=== PATIENT | male | born 1975 | race Caucasian/White ===

== ENCOUNTER 2020-02-07 16:28 | Inpatient (IN) | payer SELFPAY ==
[2020-02-07] MEDS ORDERED: RINGERS SOLUTION,LACTATED 1,000 ML IV ONE (17:24)
[2020-02-07] MEDS ORDERED: LORAZEPAM INJ 2 MG/1 ML VIAL IV ONE ×3 (17:24→20:21)
--- NOTE | 2020-02-07 17:26 | ER Document Report ---
ED Medical Screen (RME) - General Chief Complaint: ETOH Abuse Stated Complaint: ETOH ABUSE Time Seen by Provider: 02/07/20 17:19 Mode of Arrival: Ambulatory Information source: Patient Notes: HPI; 44-year-old male no medical problems history of alcohol abuse presents to the emergency room requesting detox. Patient states he been sober for 10 years started drinking a few months ago unknown how much he drinks daily. Admits to drinking today. Unknown quantity. Denies any suicidal, homicidal ideation. PE: Alert and oriented x3. Moderate distress, shaky in triage, lungs were clear to auscultation without rales, rhonchi, or wheezes. Heart: Tachycardic without murmurs rubs or gallops. I have greeted and performed a rapid initial assessment of this patient. A comprehensive ED assessment and evaluation of the patient, analysis of test results and completion of the medical decision making process will be conducted by additional ED providers. I have specifically instructed the patient or family members with the patient to immediately return to any nursing staff should anything change in the patient's condition or with their chief complaint. TRAVEL OUTSIDE OF THE [place] IN LAST 30 DAYS: No - Related Data Allergies/Adverse Reactions: bupropion [From Wellbutrin] Allergy (Verified 02/07/20 17:16) Physical Exam - Vital signs Vitals: Temp Pulse Resp BP Pulse Ox 98.4 F 115 H 16 139/99 H 96 02/07/20 16:33 02/07/20 16:33 02/07/20 16:33 02/07/20 16:33 02/07/20 16:33 Course - Vital Signs Vital signs: Temp Pulse Resp BP Pulse Ox 98.4 F 115 H 16 139/99 H 96 02/07/20 16:33 02/07/20 16:33 02/07/20 16:33 02/07/20 16:33 02/07/20 16:33
[2020-02-07 17:45] LABS: ABSOLUTE BASOPHILS # (AUTO) 0.1 10^3/uL (0.0-0.2); ABSOLUTE EOSINOPHILS # (AUTO) 0.2 10^3/uL (0.0-0.6); ABSOLUTE LYMPHOCYTES (AUTO) 1.5 10^3/uL (0.5-4.7); ABSOLUTE MONOCYTES (AUTO) 0.4 10^3/uL (0.1-1.4); ABSOLUTE NEUT (AUTO) 2.6 10^3/uL (1.7-8.2); EOSINOPHILS % (AUTO) 4.3 % (0-6); HEMOGLOBIN 18.1 g/dL (13.5-17.0); LYMPHOCYTES % (AUTO) 31.5 % (13-45); MEAN CORPUSCULAR HEMOGLOBIN 34.1 pg (27.0-33.4); MEAN CORPUSCULAR HGB CONC 34.8 g/dL (32.0-36.0); MEAN CORPUSCULAR VOLUME 98 fl (80-97); PLATELET COUNT 151 10^3/uL (150-450); RED CELL DISTRIBUTION WIDTH 14.7 % (11.5-14.0); SEGMENTED NEUTROPHILS % (AUTO) 54.2 % (42-78); TOTAL CELLS COUNTED % (AUTO) 100 %; WHITE BLOOD COUNT 4.8 10^3/uL (4.0-10.5)
[2020-02-07] MEDS ORDERED: NORMAL SALINE 1000 ML 1,000 ML with POTASSIUM CHLORIDE 20 MEQ, MAGNESIUM SULFATE 8 MEQ,... IV PRN ×5 (17:58)
--- NOTE | 2020-02-07 18:01 | ER Document Report ---
ED Substance Abuse / Acc. OD - General Chief Complaint: Alcohol Withdrawl Stated Complaint: ETOH ABUSE Time Seen by Provider: 02/07/20 17:19 Mode of Arrival: Ambulatory Information source: Patient Notes: 44-year-old male presented to ED for complaint of alcohol abuse needing to go to detox. He states he went to the [facility] this morning to get detox and they told him his alcohol was too high that he had blown a 0.4 and higher on the breathalyzer. They told him he needed to get a little less inebriated and noted to be admitted. They state he did have a bed open as long as he was able to get alcohol level down in this calendar day. He states he had been sober for many years and then several months ago he started drinking and he drinks several pints of alcohol a day his last drink was this morning he drank about a pint he is not sure exactly how much. He states he is not having any thoughts of suicidal homicidal he just wants to get him to get detoxed. He states he keeps drinking TRAVEL OUTSIDE OF THE [place] IN LAST 30 DAYS: No - HPI Patient complains to provider of: Alcohol abuse Onset: Other - Several months Onset/Duration: Persistent Quality of pain: Achy Pain Level: 4 Situational problems related to: Other - Alcohol abuse, body aches, wants to get detox Overdose of: Alcohol Time of ingestion: 10:00 Associated Symptoms: Nausea/vomiting, Other - 80 aches Similar symptoms previously: Yes Recently seen / treated by doctor: No - Related Data Allergies/Adverse Reactions: bupropion [From Wellbutrin] Allergy (Verified 02/07/20 17:16) Past Medical History - General Information source: Patient - Social History Smoking Status: Never Smoker Chew tobacco use (# tins/day): Yes Frequency of alcohol use: Heavy Drug Abuse: None Lives with: Family Family History: Reviewed & Not Pertinent Patient has suicidal ideation: No Patient has homicidal ideation: No - Past Medical History Cardiac Medical History: Reports: None Pulmonary Medical History: Reports: None EENT Medical History: Reports: None Neurological Medical History: Reports: None Endocrine Medical History: Reports: None Renal/ Medical History: Reports: None Malignancy Medical History: Reports None GI Medical History: Reports: None Musculoskeletal Medical History: Reports None Skin Medical History: Reports None Psychiatric Medical History: Reports: None Traumatic Medical History: Reports: None Surgical Hx: Negative Past Surgical History: Reports: None Review of Systems - Review of Systems Constitutional: No symptoms reported EENT: No symptoms reported Cardiovascular: No symptoms reported Respiratory: No symptoms reported Gastrointestinal: No symptoms reported Genitourinary: No symptoms reported Male Genitourinary: No symptoms reported Musculoskeletal: Other - Body aches all over Skin: No symptoms reported Hematologic/Lymphatic: No symptoms reported Neurological/Psychological: Other - Alcohol abuse. States he is trying to get into detox and they stated that his alcohol had to be a lot lower. -: Yes All other systems reviewed and negative Physical Exam - Vital signs Vitals: Temp Pulse Resp BP Pulse Ox 98.4 F 115 H 16 139/99 H 96 02/07/20 16:33 02/07/20 16:33 02/07/20 16:33 02/07/20 16:33 02/07/20 16:33 Interpretation: Hypertensive, Tachycardic - General General appearance: Appears well, Alert - HEENT Head: Normocephalic, Atraumatic Eyes: Normal Pupils: PERRL Ears: Normal External canal: Normal Tympanic membrane: Normal Sinus: Normal Nasal: Normal Mouth/Lips: Normal Mucous membranes: Normal Pharynx: Normal Neck: Normal - Respiratory Respiratory status: No respiratory distress Chest status: Nontender Breath sounds: Normal Chest palpation: Normal - Cardiovascular Rhythm: Tachycardia Heart sounds: Normal auscultation Murmur: No - Abdominal Inspection: Normal Distension: No distension Bowel sounds: Normal Tenderness: Nontender Organomegaly: No organomegaly - Back Back: Normal, Nontender Notes: Body aches all over no tenderness to palpation - Extremities General upper extremity: Normal inspection, Nontender, Normal color, Normal ROM, Normal temperature General lower extremity: Normal inspection, Nontender, Normal color, Normal ROM, Normal temperature, Normal weight bearing. No: Sheridan's sign - Neurological Neuro grossly intact: Yes Cognition: Normal Orientation: AAOx4 Clancy Coma Scale Eye Opening: Spontaneous Chantal Coma Scale Verbal: Oriented Chantal Coma Scale Motor: Obeys Commands Chantal Coma Scale Total: 15 Speech: Normal Motor strength normal: LUE, RUE, LLE, RLE Sensory: Normal - Psychological Associated symptoms: Normal affect, Normal mood - Skin Skin Temperature: Warm Skin Moisture: Dry Skin Color: Normal Course - Re-evaluation Re-evalutation: 02/07/20 22:25 Patient has been very hyper active confused and pulling lines of monitors off and having tremors since he came into the emergency room. He has been here m ultiple times with Ativan. Banana bag was started as soon as he was given his first liter of normal saline. When his tremors and hyperactivity were not controlled with the Ativan I did call the hospitalist and admitted him to [facility] with alcohol withdrawal. - Vital Signs Vital signs: Temp Pulse Resp BP Pulse Ox 98.4 F 115 H 20 149/98 H 97 02/07/20 17:16 02/07/20 16:33 02/07/20 21:12 02/07/20 21:12 02/07/20 21:12 - Laboratory Result Diagrams: 02/07/20 17:36 02/07/20 17:36 Laboratory results interpreted by me: 02/07/20 02/07/20 02/07/20 17:36 17:36 17:57 Hgb 18.1 H Hct 52.0 H MCV 98 H MCH 34.1 H RDW 14.7 H AST 248 H ALT 212 H Total Protein 9.2 H Albumin 5.1 H Urine Blood SMALL H Urine Urobilinogen 2.0 H Salicylates < 1.0 L Acetaminophen < 10 L Serum Alcohol 421 H* - EKG Interpretation by [facility] EKG shows normal: Sinus rhythm Rate: Tachycardia [place]/QRS: Left axis deviation Discharge - Discharge Clinical Impression: Alcohol withdrawal delirium, acute, mixed level of activity Disposition: ADMITTED INPATIENT Admitting Provider: Pham (Hospitalist) Unit Admitted: [facility]
[2020-02-07 18:03] LABS: ALBUMIN 5.1 g/dL (3.5-5.0); ALKALINE PHOSPHATASE 66 U/L (38-126); ANION GAP 11 (5-19); ASPARTATE AMINO TRANSFERASE 248 U/L (17-59); BILIRUBIN,DIRECT 0.1 mg/dL (0.0-0.4); BILIRUBIN,TOTAL 0.8 mg/dL (0.2-1.3); BLOOD UREA NITROGEN 10 mg/dL (7-20); CALCIUM 9.6 mg/dL (8.4-10.2); CARBON DIOXIDE 30 mmol/L (22-30); CHLORIDE 102 mmol/L (98-107); GLUCOSE 83 mg/dL (75-110); POTASSIUM 4.4 mmol/L (3.6-5.0); TOTAL PROTEIN 9.2 g/dL (6.3-8.2)
[2020-02-07 18:11] LABS: ACETAMINOPHEN < 10 ug/mL (10-30); SALICYLATE < 1.0 mg/dL (2.0-20.0)
[2020-02-07 18:12] LABS: ALCOHOL 421 mg/dL (NONE DETECTED)
[2020-02-07 18:26] LABS: APPEARANCE,URINE CLEAR; BILIRUBIN,URINE NEGATIVE (NEGATIVE); COLOR,URINE YELLOW; GLUCOSE, URINE NEGATIVE (NEGATIVE); KETONES,URINE NEGATIVE (NEGATIVE); LEUKOCYTE ESTERASE,URINE NEGATIVE (NEGATIVE); NITRITE,URINE NEGATIVE (NEGATIVE); PROTEIN,URINE NEGATIVE (NEGATIVE); URINE SPECIFIC GRAVITY 1.009
[2020-02-07 18:32] LABS: URINE AMPHETAMINES SCREEN NEGATIVE; URINE BARBITURATES SCREEN NEGATIVE; URINE BENZODIAZEPINES SCREEN NEGATIVE; URINE COCAINE SCREEN NEGATIVE; URINE MARIJUANA (THC) SCREEN NEGATIVE; URINE METHADONE SCREEN NEGATIVE; URINE PHENCYCLIDINE SCREEN NEGATIVE
[2020-02-07] MEDS ORDERED: LORAZEPAM INJ 2 MG/1 ML VIAL IV PRN (18:54)
[2020-02-07] MEDS ORDERED: ONDANSETRON HCL INJ/PF 4 MG/2 ML SDV IV ONE (20:20)
[2020-02-07] MEDS ORDERED: ONDANSETRON HCL INJ/PF 4 MG/2 ML SDV ONE (20:21)
[2020-02-07] MEDS ORDERED: PROMETHAZINE HCL INJ 25 MG/1 ML VIAL IV PRN (21:43)
[2020-02-07] MEDS ORDERED: MAGNESIUM HYDROXIDE SUSP 30 ML UDCUP PO PRN (21:43)
[2020-02-07] MEDS ORDERED: GUAIFENESIN SYRP 200 MG/10 ML UDC PO PRN (21:49)
[2020-02-07] MEDS ORDERED: ACETAMINOPHEN 325 MG TABLET PO PRN (21:49)
[2020-02-07] MEDS ORDERED: HYDRALAZINE HCL INJ/PF 20 MG/1 ML SDV IV PRN (21:49)
[2020-02-07] MEDS: FAMOTIDINE 20 MG TABLET PO SCH (23:39)
[2020-02-07] MEDS: DIAZEPAM 5 MG TABLET PO SCH (23:39)
[2020-02-07] MEDS: ATENOLOL 50 MG TABLET PO SCH (23:40)
[2020-02-07] MEDS: HEPARIN SOD (PORCINE) 5,000 UNIT/ML 1 ML VIAL SUBCUT SCH (23:40)
--- NOTE | 2020-02-07 23:42 | EKG REPORT ---
SEVERITY:- BORDERLINE ECG - SINUS TACHYCARDIA BORDERLINE LEFT AXIS DEVIATION BORDERLINE T ABNORMALITIES, LATERAL LEADS : Confirmed by: Zuri Mccormick MD 07-Feb-2020 23:41:34
--- NOTE | 2020-02-07 23:59 | PDOC H&P ---
History of Present Illness Admission Date/PCP: 02/07/20202114 NO LOCAL MD Patient complains of: Alcohol abuse History of Present Illness: PARUL LANDA is a 44 year old male who presented to the emergency room for treatment of longstanding alcohol abuse. Patient was intoxicated and delirious but was able to admit that he had gone to [facility] to seek detoxification. He further admitted a long history of sobriety until several months ago when he began consuming 2 or 3 pints of hard liquor per day, and he consumed a pint of liquor just prior to his arrival at the emergency room. He admits to an associated localized right upper quadrant abdominal moderate aching and tenderness, which he has previously experienced while drinking and was told that it was "liver pain". He was noted to be inconsistent in his answers to many questions. In the emergency room he was found to have a blood alcohol level of 421 and was noted to be somnolent unless aroused, which resulted in his being agitated, tremulous and delirious. He was given a "banana bag" and subsequently was admitted to the hospital for further evaluation and treatment. Past Medical History Past Medical History: The patient is inconsistent in his answers to questions therefore information presented may or may not be completely factual. Cardiac Medical History: Denies: Coronary Artery Disease, Hypertension Pulmonary Medical History: Denies: Asthma, Chronic Obstructive Pulmonary Disease (COPD) EENT Medical History: Denies: Cataracts, Ears - Hearing aids Neurological Medical History: Denies: Migraine, Seizures Endocrine Medical History: Denies: Diabetes Mellitus Type 1, Diabetes Mellitus Type 2 Renal/ Medical History: Denies: Chronic Kidney Disease, Nephrolithiasis Malignancy Medical History: Reports: None GI Medical History: Denies: Cirrhosis, Hepatitis, Peptic Ulcer Disease Musculoskeltal Medical History: Denies: Arthritis, Gout Skin Medical History: Denies: Eczema, Psoriasis Psychiatric Medical History: Reports: Alcohol Dependency Denies: Substance Abuse, Tobacco Dependency Traumatic Medical History: Reports: None Hematology: Denies: Anemia, Bleeding Tendencies Infectious Medical History: Reports: None Past Surgical History Past Surgical History: The patient is inconsistent in his answers to questions therefore information presented may or may not be completely factual. Past Surgical History: Reports: None Social History Information Source: Patient Lives with: Family Smoking Status: Never Smoker Electronic Cigarette use?: No Frequency of Alcohol Use: Heavy - At least 2 to 3 pints of hard liquor per day Hx Recreational Drug Use: No Drugs: None Hx Prescription Drug Abuse: No Past Social History Note: The patient is inconsistent in his answers to questions therefore information presented may or may not be completely factual. - Advance Directive Resuscitation Status: Full Code Surrogate healthcare decision maker:: Pam Landa Family History Family History: denies: CAD, DM, Hypertension, Malignancy Family History: The patient is inconsistent in his answers to questions therefore information presented may or may not be completely factual. Parental Family History Reviewed: Yes Children Family History Reviewed: No Sibling(s) Family History Reviewed.: Yes Medication/Allergy Allergies/Adverse Reactions: bupropion [From Wellbutrin] Allergy (Verified 02/07/20 17:16) Review of Systems Review of Systems: The patient is unreliable in his answers to questions therefore information presented may or may not be completely factual. Constitutional: ABSENT: chills, fever(s) Eyes: ABSENT: visual disturbances, other - Eye pain Ears: ABSENT: hearing changes, other - Ear pain Nose, Mouth, and Throat: ABSENT: headache(s), sore throat Cardiovascular: ABSENT: chest pain, palpitations Respiratory: ABSENT: cough, dyspnea Gastrointestinal: ABSENT: abdominal pain, constipation, diarrhea, nausea, vomiting Genitourinary: ABSENT: dysuria, hematuria Musculoskeletal: ABSENT: back pain, joint swelling Integumentary: ABSENT: pruritus, rash Neurological: PRESENT: tremor(s) - "The shakes". ABSENT: convulsions, focal weakness, memory loss Psychiatric: ABSENT: anxiety, depression Endocrine: ABSENT: cold intolerance, heat intolerance Hematologic/Lymphatic: ABSENT: easy bleeding, easy bruising Allergic/Immunologic: ABSENT: seasonal rhinorrhea Physical Exam Vital Signs: Temp Pulse Resp BP Pulse Ox 98.4 F 115 H 10 L 131/88 H 96 02/07/20 17:16 02/07/20 16:33 02/07/20 19:01 02/07/20 19:00 02/07/20 19:01 Intake & Output 02/05/20 02/06/20 02/07/20 23:59 23:59 23:59 Intake Total 1000 Balance 1000 Weight 82.1 kg General appearance: PRESENT: no acute distress, other - Somnolent/delirious, strong odor of an alcoholic beverage is noted Head exam: PRESENT: atraumatic, normocephalic Eye exam: PRESENT: conjunctiva pink. ABSENT: conjunctival injection, scleral icterus Ear exam: PRESENT: normal external ear exam. ABSENT: bleeding, drainage Mouth exam: PRESENT: dry mucosa, neck supple Neck exam: ABSENT: thyromegaly, tracheal deviation Respiratory exam: PRESENT: clear to auscultation angeline, symmetrical, unlabored Cardiovascular exam: PRESENT: RRR. ABSENT: clicks, gallop, rubs Pulses: PRESENT: normal radial pulses, normal dorsalis pedis pul Vascular exam: PRESENT: normal capillary refill. ABSENT: pallor GI/Abdominal exam: PRESENT: normal bowel sounds, organolmegaly - Mild hepatomegaly, soft, tenderness - Right upper quadrant at costal margin with palpable liver edge moderately tender to light palpation Rectal exam: PRESENT: deferred Extremities exam: ABSENT: joint swelling, pedal edema Musculoskeletal exam: ABSENT: deformity, dislocation Neurological exam: PRESENT: altered - Somnolent, delirious and agitated when a roused, CN II-XII grossly intact, other - Moderately tremulous in all extremities Psychiatric exam: PRESENT: appropriate affect, other - Mild delirium Skin exam: PRESENT: dry, intact, warm. ABSENT: jaundice, rash, urticaria Results Laboratory Results: 02/07/20 17:36 02/07/20 17:36 02/07/20 02/07/20 02/07/20 17:36 17:36 17:57 WBC 4.8 RBC 5.30 Hgb 18.1 H Hct 52.0 H MCV 98 H MCH 34.1 H MCHC 34.8 RDW 14.7 H Plt Count 151 Seg Neutrophils % 54.2 Sodium 143.4 Potassium 4.4 Chloride 102 Carbon Dioxide 30 Anion Gap 11 BUN 10 Creatinine 1.06 Est GFR ( Amer) > 60 Glucose 83 Calcium 9.6 Total Bilirubin 0.8 AST 248 H Alkaline Phosphatase 66 Total Protein 9.2 H Albumin 5.1 H Urine Color YELLOW Urine Appearance CLEAR Urine pH 8.0 Ur Specific [place] 1.009 Urine Protein NEGATIVE Urine Glucose (UA) NEGATIVE Urine Ketones NEGATIVE Urine Blood SMALL H Urine Nitrite NEGATIVE Ur Leukocyte Esterase NEGATIVE Urine WBC (Auto) 1 Urine RBC (Auto) 2 Assessment and Plan - Diagnosis (1) Acute alcohol intoxication Qualifiers: Complication of substance-induced condition: with delirium Qualified Code(s): F10.921 - Alcohol use, unspecified with intoxication delirium Is this a current diagnosis for this admission?: Yes (2) Alcohol withdrawal delirium, acute, mixed level of activity Is this a current diagnosis for this admission?: Yes (3) Elevated liver enzymes Is this a current diagnosis for this admission?: Yes (4) Tachycardia Is this a current diagnosis for this admission?: Yes - Plan Summary Summary: Patient will be admitted on observation bed assignment status to [facility] he will receive routine supportive and symptomatic cares. He will be treated with Valium 10 mg p.o. every 4 hours. He will receive Valium 10 mg IV every hour as needed for severe withdrawal symptoms. He will receive a "banana bag" once da sofie. CBCs, magnesium levels, metabolic profiles and liver function studies will be obtained as appropriate. Patient will be on a regular diet as tolerated. He will receive IV fluids using lactated Ringer's at 167 mL/h x 12 hours. He will be on a monitoring tech initially. He will be treated with atenolol 50 mg p.o. every 12 hours to control hypertension and tachycardia. building services technician will be consulted for assistance with disposition. - Time Time Spent with patient: Less than 15 minutes Medications reviewed and adjusted accordingly: No - No home meds Anticipated discharge: Other - Alcohol rehabilitation center - Inpatient Certification Based on my medical assessment, after consideration of the patient's comorbidities, presenting symptoms, or acuity I expect that the services needed warrant INPATIENT care.: Yes I certify that my determination is in accordance with my understanding of Medicare's requirements for reasonable and necessary INPATIENT services [42 CFR 412.3e].: Yes Medical Necessity: Need Close Monitoring Due to Risk of Patient Decompensation, Risk of Complication if Not Cared For in Hospital
[2020-02-08] MEDS: DIAZEPAM INJ 10 MG/2 ML DISP.SYRIN IV PRN ×6 (00:11→08:09)
[2020-02-08] MEDS: DEXTROSE 5%-LACTATED RINGERS 1,000 ML IV PRN ×2 (00:12→23:55)
[2020-02-08] MEDS: DIAZEPAM 5 MG TABLET PO SCH ×5 (02:05→18:57)
[2020-02-08] MEDS: HEPARIN SOD (PORCINE) 5,000 UNIT/ML 1 ML VIAL SUBCUT SCH ×3 (05:40→22:07)
[2020-02-08 06:38] LABS: HEMATOCRIT 45.9 % (37.9-51.0); MEAN CORPUSCULAR HEMOGLOBIN 34.2 pg (27.0-33.4); MEAN CORPUSCULAR HGB CONC 34.7 g/dL (32.0-36.0); MEAN CORPUSCULAR VOLUME 99 fl (80-97); PLATELET COUNT 110 10^3/uL (150-450); RED BLOOD COUNT 4.65 10^6/uL (4.35-5.55); RED CELL DISTRIBUTION WIDTH 14.5 % (11.5-14.0); WHITE BLOOD COUNT 6.9 10^3/uL (4.0-10.5)
[2020-02-08 06:41] LABS: HEMOGLOBIN 15.9 g/dL (13.5-17.0)
[2020-02-08 06:58] LABS: ALBUMIN 4.3 g/dL (3.5-5.0); ALKALINE PHOSPHATASE 54 U/L (38-126); ANION GAP 12 (5-19); ASPARTATE AMINO TRANSFERASE 214 U/L (17-59); BILIRUBIN,DIRECT 0.1 mg/dL (0.0-0.4); BILIRUBIN,TOTAL 0.8 mg/dL (0.2-1.3); BLOOD UREA NITROGEN 11 mg/dL (7-20); CARBON DIOXIDE 25 mmol/L (22-30); CHLORIDE 104 mmol/L (98-107); GLUCOSE 84 mg/dL (75-110); POTASSIUM 4.2 mmol/L (3.6-5.0); TOTAL PROTEIN 7.6 g/dL (6.3-8.2)
[2020-02-08] MEDS ORDERED: NORMAL SALINE 1000 ML 1,000 ML with POTASSIUM CHLORIDE 20 MEQ, MAGNESIUM SULFATE 8 MEQ,... IV SCH ×20 (08:00→18:00)
[2020-02-08] MEDS ORDERED: LORAZEPAM INJ 2 MG/1 ML VIAL ONE (09:57)
[2020-02-08] MEDS: DOCUSATE SODIUM 100 MG CAPSULE PO SCH ×2 (10:01→18:56)
[2020-02-08] MEDS: FAMOTIDINE 20 MG TABLET PO SCH ×2 (10:02→22:05)
[2020-02-08] MEDS: ATENOLOL 50 MG TABLET PO SCH ×2 (10:07→22:06)
[2020-02-08] MEDS: LORAZEPAM INJ 2 MG/1 ML VIAL IV PRN ×3 (12:07→21:02)
[2020-02-08] MEDS: NICOTINE 7 MG/24 HR PATCH.TD24 TD SCH (13:15)
--- NOTE | 2020-02-08 17:12 | PDOC PROGRESS REPORT ---
Subjective Progress Note for:: 02/08/20 Subjective:: Patient feels very anxious today. Having tremors. Denies history of withdrawal seizures. States that he feels like he is undergoing withdrawal. Reason For Visit: ACUTE ALCOHOL INTOXICATION,ALCOHOL Physical Exam Vital Signs: Temp Pulse Resp BP Pulse Ox 97.7 F 70 16 135/87 H 99 02/08/20 08:08 02/08/20 14:00 02/08/20 08:08 02/08/20 08:08 02/08/20 08:08 Intake & Output 02/07/20 02/08/20 02/09/20 06:59 06:59 06:59 Intake Total 2463 747 Output Total 200 140 Balance 2263 607 Weight 82.1 kg General appearance: PRESENT: no acute distress, cooperative Neck exam: ABSENT: JVD Respiratory exam: PRESENT: clear to auscultation angeline, unlabored. ABSENT: tac hypnea, wheezes Cardiovascular exam: PRESENT: +S1, +S2, tachycardia. ABSENT: irregular rhythm GI/Abdominal exam: PRESENT: soft. ABSENT: rebound, rigid, tenderness Neurological exam: PRESENT: alert, awake, oriented to person, oriented to place, oriented to time, other - Tremulous in all extremities. Appears somewhat confu sed but fully oriented and answers questions appropriately. Psychiatric exam: PRESENT: anxious. ABSENT: agitated Skin exam: PRESENT: other - Flushed skin Results Laboratory Results: 02/08/20 06:09 02/08/20 06:09 02/07/20 02/07/20 02/07/20 17:36 17:36 17:57 WBC 4.8 RBC 5.30 Hgb 18.1 H Hct 52.0 H MCV 98 H MCH 34.1 H MCHC 34.8 RDW 14.7 H Plt Count 151 Seg Neutrophils % 54.2 Sodium 143.4 Potassium 4.4 Chloride 102 Carbon Dioxide 30 Anion Gap 11 BUN 10 Creatinine 1.06 Est GFR ( Amer) > 60 Glucose 83 Calcium 9.6 Magnesium Total Bilirubin 0.8 AST 248 H Alkaline Phosphatase 66 Total Protein 9.2 H Albumin 5.1 H Urine Color YELLOW Urine Appearance CLEAR Urine pH 8.0 Ur Specific [place] 1.009 Urine Protein NEGATIVE Urine Glucose (UA) NEGATIVE Urine Ketones NEGATIVE Urine Blood SMALL H Urine Nitrite NEGATIVE Ur Leukocyte Esterase NEGATIVE Urine WBC (Auto) 1 Urine RBC (Auto) 2 02/08/20 02/08/20 06:09 06:09 WBC 6.9 RBC 4.65 Hgb 15.9 D Hct 45.9 MCV 99 H MCH 34.2 H MCHC 34.7 RDW 14.5 H Plt Count 110 L Seg Neutrophils % Sodium 140.5 Potassium 4.2 Chloride 104 Carbon Dioxide 25 Anion Gap 12 BUN 11 Creatinine 0.95 Est GFR ( Amer) > 60 Glucose 84 Calcium 9.0 Magnesium 2.1 Total Bilirubin 0.8 AST 214 H Alkaline Phosphatase 54 Total Protein 7.6 Albumin 4.3 Urine Color Urine Appearance Urine pH Ur Specific [place] Urine Protein Urine Glucose (UA) Urine Ketones Urine Blood Urine Nitrite Ur Leukocyte Esterase Urine WBC (Auto) Urine RBC (Auto) Assessment and Plan - Diagnosis (1) Alcohol withdrawal delirium, acute, mixed level of activity Is this a current diagnosis for this admission?: Yes Plan: Today, patient is in significant alcohol withdrawal requiring frequent IV Ativan. I have placed patient on standing dose of Valium 5 mg TID and as needed IV lorazepam based of CIWA scores. Last CIWA score was 17. Will monitor patie nt very closely in the IMCU and will escalate level of care if needed. (2) Alcoholic hepatitis Qualifiers: Ascites presence: without ascites Qualified Code(s): K70.10 - Alcoholic hepatitis without ascites Is this a current diagnosis for this admission?: Yes Plan: Monitor on liver enzymes. Patient has been advised to abstain from alcohol. (3) Acute alcohol intoxication Qualifiers: Complication of substance-induced condition: with unspecified complication Qualified Code(s): F10.929 - Alcohol use, unspecified with intoxication, unspecified Is this a current diagnosis for this admission?: Yes Plan: Presented with acute alcohol intoxication with serum alcohol of 421 but now has become sober and actually withdrawal. - Time Time Spent with patient: 15-24 minutes
[2020-02-09] MEDS: LORAZEPAM INJ 2 MG/1 ML VIAL IV PRN ×4 (00:05→21:32)
[2020-02-09 06:48] LABS: ALBUMIN 3.9 g/dL (3.5-5.0); ALKALINE PHOSPHATASE 51 U/L (38-126); ANION GAP 7 (5-19); ASPARTATE AMINO TRANSFERASE 140 U/L (17-59); BILIRUBIN,DIRECT 0.1 mg/dL (0.0-0.4); BILIRUBIN,TOTAL 1.4 mg/dL (0.2-1.3); BLOOD UREA NITROGEN 9 mg/dL (7-20); CALCIUM 9.3 mg/dL (8.4-10.2); CARBON DIOXIDE 26 mmol/L (22-30); CHLORIDE 103 mmol/L (98-107); GLUCOSE 103 mg/dL (75-110); POTASSIUM 3.8 mmol/L (3.6-5.0); TOTAL PROTEIN 7.2 g/dL (6.3-8.2)
[2020-02-09] MEDS: DEXTROSE 5%-LACTATED RINGERS 1,000 ML IV PRN (07:20)
[2020-02-09] MEDS: HEPARIN SOD (PORCINE) 5,000 UNIT/ML 1 ML VIAL SUBCUT SCH ×3 (07:33→21:30)
[2020-02-09] MEDS: DOCUSATE SODIUM 100 MG CAPSULE PO SCH (09:32)
[2020-02-09] MEDS: ATENOLOL 50 MG TABLET PO SCH ×2 (09:34→21:31)
[2020-02-09] MEDS: NICOTINE 7 MG/24 HR PATCH.TD24 TD SCH (09:34)
[2020-02-09] MEDS: DIAZEPAM 5 MG TABLET PO SCH ×3 (09:34→18:01)
[2020-02-09] MEDS: FAMOTIDINE 20 MG TABLET PO SCH ×2 (09:34→21:32)
[2020-02-09] MEDS ORDERED: LORAZEPAM 1 MG TABLET PO PRN (11:49)
[2020-02-09] MEDS ORDERED: FOLIC ACID 1 MG TABLET PO ONE (11:53)
[2020-02-09] MEDS ORDERED: THIAMINE HCL 100 MG TABLET PO ONE (11:53)
--- NOTE | 2020-02-09 12:00 | PDOC PROGRESS REPORT ---
Subjective Progress Note for:: 02/09/20 Subjective:: Patient is doing better today in terms of his CIWA scores. He is fully oriented and denies any hallucinations. Does seem somewhat anxious when he wakes up. Denies any pain or shortness of breath. Reason For Visit: ACUTE ALCOHOL INTOXICATION,ALCOHOL Physical Exam Vital Signs: Temp Pulse Resp BP Pulse Ox 97.7 F 53 L 16 138/87 H 99 02/08/20 16:18 02/09/20 06:43 02/08/20 16:18 02/08/20 16:18 02/08/20 16:18 Intake & Output 02/08/20 02/09/20 02/10/20 06:59 06:59 06:59 Intake Total 3463 1947 1023 Output Total 200 1670 Balance 3263 277 1023 Weight 82.1 kg 78.5 kg General appearance: PRESENT: no acute distress, cooperative Neck exam: ABSENT: JVD Respiratory exam: PRESENT: clear to auscultation angeline, symmetrical, unlabored. ABSENT: tachypnea, wheezes Cardiovascular exam: PRESENT: RRR, +S1, +S2. ABSENT: tachycardia GI/Abdominal exam: PRESENT: soft. ABSENT: rebound, rigid, tenderness Neurological exam: PRESENT: alert, awake, oriented to person, oriented to place, oriented to time, oriented to situation, other - Tremor mostly in the arms but improved Psychiatric exam: PRESENT: anxious. ABSENT: agitated Results Laboratory Results: 02/08/20 06:09 02/09/20 06:06 02/09/20 06:06 Sodium 135.5 L Potassium 3.8 Chloride 103 Carbon Dioxide 26 Anion Gap 7 BUN 9 Creatinine 0.88 Est GFR ( Amer) > 60 Glucose 103 Calcium 9.3 Magnesium 1.9 Total Bilirubin 1.4 H AST 140 H Alkaline Phosphatase 51 Total Protein 7.2 Albumin 3.9 Assessment and Plan - Diagnosis (1) Alcohol withdrawal delirium, acute, mixed level of activity Is this a current diagnosis for this admission?: Yes Plan: CIWA scores show significant improvement today. CIWA scores of 9 twice this morning. We will continue to monitor closely. Will maintain on Valium standing regimen today and hopefully we can start to wean tomorrow. Ativan as needed for elevated CIWA scores. IV and n.p.o. orders according to scores. If patient ciwa scores remain low today, then can send patient to [facility] for further detox tomorrow. Discussed with discharge planning to help coordinate. (2) Alcoholic hepatitis Qualifiers: Ascites presence: without ascites Qualified Code(s): K70.10 - Alcoholic hepatitis without ascites Is this a current diagnosis for this admission?: Yes Plan: Transaminases trending down. Patient has been advised to abstain from alcohol. (3) Acute alcohol intoxication Qualifiers: Complication of substance-induced condition: with unspecified complication Qualified Code(s): F10.929 - Alcohol use, unspecified with intoxication, unspecified Is this a current diagnosis for this admission?: Yes Plan: Initially intoxicated upon admission but now in rapid withdrawal. Thiamine and folic acid supplementation. Will check B12 and folic acid level in light of macrocytosis noted on CBC. - Time Time Spent with patient: Less than 15 minutes
[2020-02-10] MEDS: LORAZEPAM INJ 2 MG/1 ML VIAL IV PRN ×2 (01:18→04:21)
[2020-02-10] MEDS: HEPARIN SOD (PORCINE) 5,000 UNIT/ML 1 ML VIAL SUBCUT SCH ×2 (06:03→13:40)
[2020-02-10 07:17] LABS: ALBUMIN 4.1 g/dL (3.5-5.0); ALKALINE PHOSPHATASE 56 U/L (38-126); ANION GAP 8 (5-19); ASPARTATE AMINO TRANSFERASE 138 U/L (17-59); BILIRUBIN,DIRECT 0.1 mg/dL (0.0-0.4); BILIRUBIN,TOTAL 0.8 mg/dL (0.2-1.3); BLOOD UREA NITROGEN 14 mg/dL (7-20); CALCIUM 9.9 mg/dL (8.4-10.2); CARBON DIOXIDE 27 mmol/L (22-30); CHLORIDE 102 mmol/L (98-107); GLUCOSE 96 mg/dL (75-110); POTASSIUM 4.1 mmol/L (3.6-5.0); TOTAL PROTEIN 7.8 g/dL (6.3-8.2)
[2020-02-10] MEDS: ATENOLOL 50 MG TABLET PO SCH (09:58)
[2020-02-10] MEDS: FAMOTIDINE 20 MG TABLET PO SCH (09:58)
[2020-02-10] MEDS: DIAZEPAM 5 MG TABLET PO SCH ×3 (09:58→17:35)
[2020-02-10] MEDS: NICOTINE 7 MG/24 HR PATCH.TD24 TD SCH (09:59)
[2020-02-10] MEDS ORDERED: FOLIC ACID 1 MG TABLET PO SCH (10:00)
[2020-02-10] MEDS ORDERED: THIAMINE HCL 100 MG TABLET PO SCH (10:00)
--- NOTE | 2020-02-10 15:18 | PDOC DISCHARGE SUMMARY ---
Impression - Admit/DC Date/PCP Admission Date/Primary Care Provider: 02/08/20 12:49 Discharge Date: 02/10/20 - Discharge Diagnosis (1) Alcohol withdrawal delirium, acute, mixed level of activity Is this a current diagnosis for this admission?: Yes (2) Alcoholic hepatitis Is this a current diagnosis for this admission?: Yes (3) Acute alcohol intoxication Is this a current diagnosis for this admission?: Yes - Additional Information Resuscitation Status: Full Code Discharge Diet: Regular Discharge Activity: Activity As Tolerated Referrals: BAKARI CLARKE [NO LOCAL MD] - Follow up as needed Home Medications: Trazodone HCl [Desyrel 50 mg Tablet] 150 mg PO QHS 02/08/20 History of Present Illiness History of Present Illness: According to admitting provider: PARUL ROBISON is a 44 year old male who presented to the emergency room for treatment of longstanding alcohol abuse. Patient was intoxicated and delirious but was able to admit that he had gone to [facility] to seek detoxification. He further admitted a long history of sobriety until several months ago when he began consuming 2 or 3 pints of hard liquor per day, and he consumed a pint of liquor just prior to his arrival at the emergency room. He admits to an associated localized right upper quadrant abdominal moderate aching and tenderness, which he has previously experienced while drinking and was told that it was "liver pain". He was noted to be inconsistent in his answers to many questions. In the emergency room he was found to have a blood alcohol level of 421 and was noted to be somnolent unless aroused, which resulted in his being agitated, tremulous and delirious. He was given a "banana bag" and subsequently was admitted to the hospital for further evaluation and treatment. Hospital Course Hospital Course: Patient was initially admitted for alcohol intoxication with blood alcohol level over 400. Also noted was evidence of alcoholic hepatitis on lab work. Patient was treated with IV fluids. By the next day patient became sober and started having withdrawal. Initially CIWA scores were extremely high over 15. He was placed on standing Valium and giving as needed Ativan doses based of CIWA scores. He was also placed on thiamine and folic acid. Vitamin B12 levels were checked which were normal and so were folic acid levels. His transaminitis improved and his hyperbilirubinemia resolved. His CIWA scores also improved and today his CIWA scores were all below 10. At this point patient is being discharged to help with detox center in [place] where patient already has a bed. Physical Exam Vital Signs: Temp Pulse Resp BP Pulse Ox 97.9 F 85 16 135/87 H 98 02/10/20 11:05 02/10/20 11:05 02/10/20 11:05 02/10/20 11:05 02/10/20 11:05 Intake & Output 02/09/20 02/10/20 02/11/20 06:59 06:59 06:59 Intake Total 1947 2869 Output Total 1670 1430 Balance 277 1439 Weight 78.5 kg 86.3 kg General appearance: PRESENT: no acute distress, cooperative Respiratory exam: PRESENT: unlabored Cardiovascular exam: ABSENT: tachycardia Neurological exam: PRESENT: alert, awake, oriented to person, oriented to place, oriented to time, oriented to situation Skin exam: PRESENT: other - flushed Results Laboratory Results: WBC 6.9 10^3/uL (4.0-10.5) 02/08/20 06:09 RBC 4.65 10^6/uL (4.35-5.55) 02/08/20 06:09 Hgb 15.9 g/dL (13.5-17.0) D 02/08/20 06:09 Hct 45.9 % (37.9-51.0) 02/08/20 06:09 MCV 99 fl (80-97) H 02/08/20 06:09 MCH 34.2 pg (27.0-33.4) H 02/08/20 06:09 MCHC 34.7 g/dL (32.0-36.0) 02/08/20 06:09 RDW 14.5 % (11.5-14.0) H 02/08/20 06:09 Plt Count 110 10^3/uL (150-450) L 02/08/20 06:09 Lymph % (Auto) 31.5 % (13-45) 02/07/20 17:36 [place] % (Auto) 9.0 % (3-13) 02/07/20 17:36 Eos % (Auto) 4.3 % (0-6) 02/07/20 17:36 Baso % (Auto) 1.0 % (0-2) 02/07/20 17:36 Absolute Neuts (auto) 2.6 10^3/uL (1.7-8.2) 02/07/20 17:36 Absolute Lymphs (auto) 1.5 10^3/uL (0.5-4.7) 02/07/20 17:36 Absolute Monos (auto) 0.4 10^3/uL (0.1-1.4) 02/07/20 17:36 Absolute Eos (auto) 0.2 10^3/uL (0.0-0.6) 02/07/20 17:36 Absolute Basos (auto) 0.1 10^3/uL (0.0-0.2) 02/07/20 17:36 Seg Neutrophils % 54.2 % (42-78) 02/07/20 17:36 Sodium 137.4 mmol/L (137-145) 02/10/20 05:58 Potassium 4.1 mmol/L (3.6-5.0) 02/10/20 05:58 Chloride 102 mmol/L (98-107) 02/10/20 05:58 Carbon Dioxide 27 mmol/L (22-30) 02/10/20 05:58 Anion Gap 8 (5-19) 02/10/20 05:58 BUN 14 mg/dL (7-20) 02/10/20 05:58 Creatinine 1.06 mg/dL (0.52-1.25) 02/10/20 05:58 Est GFR ( Amer) > 60 (>60) 02/10/20 05:58 Est GFR (MDRD) Non-Af > 60 (>60) 02/10/20 05:58 Glucose 96 mg/dL (75-110) 02/10/20 05:58 Calcium 9.9 mg/dL (8.4-10.2) 02/10/20 05:58 Magnesium 1.9 mg/dL (1.6-2.3) 02/10/20 05:58 Total Bilirubin 0.8 mg/dL (0.2-1.3) 02/10/20 05:58 Direct Bilirubin 0.1 mg/dL (0.0-0.4) 02/10/20 05:58 Neonat Total Bilirubin Not Reportable 02/10/20 05:58 Neonat Direct Bilirubin Not Reportable 02/10/20 05:58 Neonat Indirect Bili Not Reportable 02/10/20 05:58 AST 138 U/L (17-59) H 02/10/20 05:58 ALT 183 U/L (<50) H 02/10/20 05:58 Alkaline Phosphatase 56 U/L (38-126) 02/10/20 05:58 Total Protein 7.8 g/dL (6.3-8.2) 02/10/20 05:58 Albumin 4.1 g/dL (3.5-5.0) 02/10/20 05:58 Vitamin B12 891.0 pg/mL (239-931) 02/10/20 05:58 Folate 15.70 ng/mL (>2.76) 02/10/20 05:58 Urine Color YELLOW 02/07/20 17:57 Urine Appearance CLEAR 02/07/20 17:57 Urine pH 8.0 (5.0-9.0) 02/07/20 17:57 Ur Specific [place] 1.009 02/07/20 17:57 Urine Protein NEGATIVE mg/dL (NEGATIVE) 02/07/20 17:57 Urine Glucose (UA) NEGATIVE mg/dL (NEGATIVE) 02/07/20 17:57 Urine Ketones NEGATIVE mg/dL (NEGATIVE) 02/07/20 17:57 Urine Blood SMALL (NEGATIVE) H 02/07/20 17:57 Urine Nitrite NEGATIVE (NEGATIVE) 02/07/20 17:57 Urine Bilirubin NEGATIVE (NEGATIVE) 02/07/20 17:57 Urine Urobilinogen 2.0 mg/dL (<2.0) H 02/07/20 17:57 Ur Leukocyte Esterase NEGATIVE (NEGATIVE) 02/07/20 17:57 Urine WBC (Auto) 1 /HPF 02/07/20 17:57 Urine RBC (Auto) 2 /HPF 02/07/20 17:57 Urine Ascorbic Acid NEGATIVE (NEGATIVE) 02/07/20 17:57 Salicylates < 1.0 mg/dL (2.0-20.0) L 02/07/20 17:36 Urine Opiates Screen NEGATIVE 02/07/20 17:57 Urine Methadone Screen NEGATIVE 02/07/20 17:57 Acetaminophen < 10 ug/mL (10-30) L 02/07/20 17:36 Ur Barbiturates Screen NEGATIVE 02/07/20 17:57 Ur Phencyclidine Scrn NEGATIVE 02/07/20 17:57 Ur Amphetamines Screen NEGATIVE 02/07/20 17:57 U Benzodiazepines Scrn NEGATIVE 02/07/20 17:57 Urine Cocaine Screen NEGATIVE 02/07/20 17:57 U Marijuana (THC) Screen NEGATIVE 02/07/20 17:57 Serum Alcohol 131 mg/dL (NONE DETECTED) 02/08/20 06:09 Plan Time Spent: Less than 30 Minutes Stroke Is this a Stroke Patient?: No Acute Heart Failure - Is this a Heart Failure Patient?: No
[2020-02-10 15:36] VITALS: BP 118/66
== END 2020-02-10 18:06 | DRG 897 ==
LOC: ER 16:28 → EH 21:27 → INTOOBSV 21:27 → 3W 23:05 → OBSVTOIN 02-08 12:49
PROVIDERS: ADMIT Emergency Medicine; ATTEND Internal Medicine
PROC: HZ2ZZZZ Detoxification Services for Substance Abuse Treatment (ICD-10-PCS; principal; 2020-02-07)
DX: F10.221 Alcohol dependence with intoxication delirium (principal); K70.10 Alcoholic hepatitis without ascites; Y90.8 Blood alcohol level of 240 mg/100 ml or more; Z82.49 Family history of ischemic heart disease and other diseases of the circulatory system; Z88.8 Allergy status to other drugs, medicaments and biological substances
CPT/HCPCS: 36415; 80048; 80053; 80076; 80307; 81001; 82607; 82746; 83735; 85025; 85027; 93005; 93010; 96361; 96374; 96375; 96376; 99285; G0378; J2060; J2405; J2550; J3360; J3411; J3475; J3480; J3490; J7030; J7120; J7121

== ENCOUNTER 2020-05-28 21:56 | Inpatient (IN) | payer SELFPAY ==
[2020-05-28 22:42] LABS: ABSOLUTE EOSINOPHILS # (AUTO) 0.1 10^3/uL (0.0-0.6); ABSOLUTE LYMPHOCYTES (AUTO) 1.4 10^3/uL (0.5-4.7); ABSOLUTE MONOCYTES (AUTO) 0.9 10^3/uL (0.1-1.4); ABSOLUTE NEUT (AUTO) 7.8 10^3/uL (1.7-8.2); BASOPHILS % (AUTO) 0.2 % (0-2); EOSINOPHILS % (AUTO) 0.9 % (0-6); HEMATOCRIT 43.1 % (37.9-51.0); LYMPHOCYTES % (AUTO) 13.3 % (13-45); MEAN CORPUSCULAR HEMOGLOBIN 33.3 pg (27.0-33.4); MEAN CORPUSCULAR HGB CONC 34.7 g/dL (32.0-36.0); MEAN CORPUSCULAR VOLUME 96 fl (80-97); MONOCYTES % (AUTO) 9.2 % (3-13); PLATELET COUNT 125 10^3/uL (150-450); RED BLOOD COUNT 4.48 10^6/uL (4.35-5.55); RED CELL DISTRIBUTION WIDTH 13.9 % (11.5-14.0); SEGMENTED NEUTROPHILS % (AUTO) 76.4 % (42-78); TOTAL CELLS COUNTED % (AUTO) 100 %; WHITE BLOOD COUNT 10.2 10^3/uL (4.0-10.5)
[2020-05-28 23:04] LABS: ALBUMIN 4.3 g/dL (3.5-5.0); ALCOHOL < 10 mg/dL (NONE DETECTED); ALKALINE PHOSPHATASE 56 U/L (38-126); ANION GAP 9 (5-19); ASPARTATE AMINO TRANSFERASE 88 U/L (17-59); BILIRUBIN,DIRECT 0.3 mg/dL (0.0-0.4); BILIRUBIN,TOTAL 0.8 mg/dL (0.2-1.3); BLOOD UREA NITROGEN 16 mg/dL (7-20); CALCIUM 9.2 mg/dL (8.4-10.2); CARBON DIOXIDE 28 mmol/L (22-30); CHLORIDE 98 mmol/L (98-107); GLUCOSE 122 mg/dL (75-110); TOTAL PROTEIN 7.5 g/dL (6.3-8.2)
[2020-05-28] MEDS ORDERED: THIAMINE HCL 100 MG, FOLIC ACID 1 MG in NORMAL SALINE 250 ML IV ONE (23:21)
[2020-05-28] MEDS ORDERED: DIAZEPAM INJ 10 MG/2 ML DISP.SYRIN IV ONE (23:21)
--- NOTE | 2020-05-28 23:24 | ER Document Report ---
ED General - General Chief Complaint: Alcohol Withdrawl Stated Complaint: WITHDRAWLS Time Seen by Provider: 05/28/20 22:57 Mode of Arrival: Stretcher Information source: Emergency Med Personnel Cannot obtain history due to: Altered mental status Notes: Patient is a 45 y/o male brought in by EMS from the [facility] for alcohol withdrawal. Per EMS, patient was at the [facility] for about 2 days for alcohol detox. He became confused and was reaching for objects that weren't there. Upon arrival, patient is only oriented to person and year but not to place or current situation. [place]. Patient is actively hallucinating as he continues to reach for things that are not there. TRAVEL OUTSIDE OF THE [place] IN LAST 30 DAYS: No - Related Data Allergies/Adverse Reactions: bupropion [From Wellbutrin] Allergy (Verified 05/28/20 22:16) Past Medical History - General Cannot obtain history due to: Altered mental status - Social History Smoking Status: Unknown if Ever Smoked Chew tobacco use (# tins/day): No Frequency of alcohol use: Heavy Drug Abuse: None Family History: denies: CAD, DM, Hypertension, Malignancy Patient has homicidal ideation: No - Past Medical History Cardiac Medical History: Denies: Hx Coronary Artery Disease, Hx Hypertension Pulmonary Medical History: Denies: Hx Asthma, Hx COPD Neurological Medical History: Denies: Hx Migraine, Hx Seizures Endocrine Medical History: Denies: Hx Diabetes Mellitus Type 1, Hx Diabetes Mellitus Type 2 GI Medical History: Denies: Hx Cirrhosis, Hx Hepatitis Musculoskeletal Medical History: Denies Hx Arthritis, Denies Hx Gout Skin Medical History: Denies Hx Eczema, Denies Hx Psoriasis Psychiatric Medical History: Reports: Hx Depression Infectious Medical History: Denies: Hx Hepatitis Review of Systems - Review of Systems -: Yes ROS unobtainable due to patient's medical condition Physical Exam - Vital signs Vitals: Temp 97.6 F 05/28/20 21:57 - Notes Notes: PHYSICAL EXAMINATION: GENERAL: Disheveled and ill-appearing. HEAD: Atraumatic, normocephalic. EYES: Pupils equal round and reactive to light, extraocular movements intact, sclera anicteric, conjunctiva are normal. ENT: nares patent, oropharynx clear without exudates. Moist mucous membranes. NECK: Normal range of motion, supple without lymphadenopathy LUNGS: Breath sounds clear to auscultation bilaterally and equal. No wheezes rales or rhonchi. HEART: Tachycardia with a regular rhythm. No murmurs noted. ABDOMEN: Soft, nontender, normoactive bowel sounds. No guarding, no rebound. No masses appreciated. EXTREMITIES: Normal range of motion, no pitting or edema. No cyanosis. NEUROLOGICAL: Alert and oriented x 2 (name and year). Not oriented to place or current situation. No tremors noted. PSYCH: Stuttered speech. Actively hallucinating as he reaches for objects that are not there. SKIN: Warm, Dry, with isa complexion. Course - Re-evaluation Re-evalutation: Patient brought in by EMS from the [facility] for alcohol withdrawal. Patient is not oriented to place or situation and actively hallucinating with stuttered speech. Patient is tachycardic at 119. Serum alcohol <10, sodium 134.6, AST 88 and ALT 80. Diazepam 10mg IV ordered immediately along with thiamine and folic acid. After diazepam give, tachycardia improved to 90s and no active signs of withdrawal. Patient will be admitted for alcohol withdrawal and altered mental status. Dr. Nath called and accepted patient for full admission to [facility]. Laboratory 05/28/20 05/28/20 22:09 22:09 WBC 10.2 RBC 4.48 Hgb 15.0 Hct 43.1 MCV 96 MCH 33.3 MCHC 34.7 RDW 13.9 Plt Count 125 L Lymph % (Auto) 13.3 [place] % (Auto) 9.2 Eos % (Auto) 0.9 Baso % (Auto) 0.2 Absolute Neuts (auto) 7.8 Absolute Lymphs (auto) 1.4 Absolute Monos (auto) 0.9 Absolute Eos (auto) 0.1 Absolute Basos (auto) 0.0 Seg Neutrophils % 76.4 Sodium 134.6 L Potassium 4.0 Chloride 98 Carbon Dioxide 28 Anion Gap 9 BUN 16 Creatinine 1.12 Est GFR ( Amer) > 60 Est GFR (MDRD) Non-Af > 60 Glucose 122 H Calcium 9.2 Magnesium 1.9 Total Bilirubin 0.8 Direct Bilirubin 0.3 Neonat Total Bilirubin Not Reportable Neonat Direct Bilirubin Not Reportable Neonat Indirect Bili Not Reportable AST 88 H ALT 80 H Alkaline Phosphatase 56 Total Protein 7.5 Albumin 4.3 Serum Alcohol < 10 - Vital Signs Vital signs: Temp Pulse Resp BP Pulse Ox 97.6 F 14 111/74 93 05/28/20 21:57 05/29/20 01:31 05/29/20 01:31 05/29/20 01:31 - Laboratory Result Diagrams: 05/28/20 22:09 05/28/20 22:09 Laboratory results interpreted by me: 05/28/20 05/28/20 22:09 22:09 Plt Count 125 L Sodium 134.6 L Glucose 122 H AST 88 H ALT 80 H - EKG Interpretation by Me Additional EKG results interpreted by me: Sinus tachycardia with a rate of 120. QTc 430. Normal [place]. No T wave inversions or ST segment changes in consecutive leads. Discharge - Discharge Clinical Impression: Alcohol withdrawal delirium Altered mental status Qualifiers: Altered mental status type: delirium Qualified Code(s): R41.0 - Disorientation, unspecified Condition: Stable Disposition: ADMITTED INPATIENT Admitting Provider: Pham (Hospitalist) Unit Admitted: [facility]
[2020-05-28] MEDS ORDERED: FOLIC ACID INJ 5 MG/1 ML 10 ML VIAL ONE (23:28)
[2020-05-28] MEDS ORDERED: THIAMINE HCL INJ 200 MG/2 ML VIAL ONE (23:28)
[2020-05-29] MEDS ORDERED: MAGNESIUM HYDROXIDE SUSP 30 ML UDCUP PO PRN (01:26)
[2020-05-29] MEDS ORDERED: MAG HYDROX/AL HYDROX/SIMETH SUSP 30 ML UDCUP PO PRN (01:26)
[2020-05-29] MEDS ORDERED: ACETAMINOPHEN 650 MG SUPP.RECT PR PRN (01:31)
[2020-05-29] MEDS ORDERED: ACETAMINOPHEN 325 MG TABLET PO PRN (01:31)
[2020-05-29] MEDS ORDERED: PROMETHAZINE HCL INJ 25 MG/1 ML VIAL IV PRN (01:34)
[2020-05-29] MEDS: DEXTROSE 5%-LACTATED RINGERS 1,000 ML IV PRN ×3 (03:18→15:13)
--- NOTE | 2020-05-29 04:06 | PDOC H&P ---
History of Present Illness Admission Date/PCP: 05/29/2020 01:07 No local PCP Patient complains of: Acute alcohol withdrawal History of Present Illness: PARUL LANDA is a 45 year old male who presented to the emergency room via EMS with acute alcohol withdrawal delirium. The patient is unable to provide any medical historical information due to his delirious state. He has been a patient at the [facility] for the last 2 days. Staff there reported that he became confused and was hallucinating causing them to have EMS bring him to the hospital. In the emergency room patient was noted to be tachycardic and delirious with active visual hallucinations. He was treated with intravenous Valium to which he responded well. He was subsequently admitted to the hospital for further evaluation and treatment. Past Medical History Past Medical History: Due to the patient's acute delirium all information presented here is obtained from the best available reliable source. Cardiac Medical History: Denies: Coronary Artery Disease, Hypertension Pulmonary Medical History: Denies: Asthma, Chronic Obstructive Pulmonary Disease (COPD) EENT Medical History: Denies: Cataracts, Ears - Doing a Neurological Medical History: Denies: Migraine, Seizures Endocrine Medical History: Denies: Diabetes Mellitus Type 1, Diabetes Mellitus Type 2 Malignancy Medical History: Reports: None GI Medical History: Denies: Cirrhosis, Hepatitis Musculoskeltal Medical History: Denies: Arthritis, Gout Skin Medical History: Denies: Eczema, Psoriasis Psychiatric Medical History: Reports: Alcohol Dependency, Depression Traumatic Medical History: Reports: None Hematology: Denies: Anemia, Bleeding Tendencies Infectious Medical History: Reports: None Past Surgical History Past Surgical History: Due to the patient's acute delirium all information presented here is obtained from the best available reliable source. Past Surgical History: Reports: None Social History Information Source: [facility] Lives with: Other - [facility] Smoking Status: Never Smoker Electronic Cigarette use?: No Frequency of Alcohol Use: Heavy - At least 2 to 3 pints of hard liquor per day Hx Recreational Drug Use: No Drugs: None Hx Prescription Drug Abuse: No Past Social History Note: Due to the patient's acute delirium all information presented here is obtained from the best available reliable source. - Advance Directive Resuscitation Status: Full Code Surrogate healthcare decision maker:: Pam Landa Family History Family History: denies: CAD, DM, Hypertension, Malignancy Family History: Due to the patient's acute delirium all information presented here is obtained from the best available reliable source. Parental Family History Reviewed: Yes Children Family History Reviewed: No Sibling(s) Family History Reviewed.: Yes Medication/Allergy Home Medications: Trazodone HCl [Desyrel 50 mg Tablet] 150 mg PO QHS 02/08/20 Allergies/Adverse Reactions: bupropion [From Wellbutrin] Allergy (Verified 05/28/20 22:16) Review of Systems ROS unobtainable: Due to mental status - Acute delirium Physical Exam Vital Signs: Temp Pulse Resp BP Pulse Ox 97.6 F 05/28/20 21:57 Intake & Output 05/27/20 05/28/20 05/29/20 23:59 23:59 23:59 Intake Total 251.2 Balance 251.2 Weight 84.6 kg General appearance: PRESENT: no acute distress, other - Lethargic but arousable, confused when aroused Head exam: PRESENT: atraumatic, normocephalic Eye exam: PRESENT: conjunctiva pink. ABSENT: conjunctival injection, scleral icterus Ear exam: PRESENT: normal external ear exam. ABSENT: bleeding, drainage Mouth exam: PRESENT: dry mucosa, neck supple Neck exam: ABSENT: thyromegaly, tracheal deviation Respiratory exam: PRESENT: clear to auscultation angeline, symmetrical, unlabored Cardiovascular exam: PRESENT: RRR. ABSENT: clicks, gallop, rubs Pulses: PRESENT: normal radial pulses, normal dorsalis pedis pul Vascular exam: PRESENT: normal capillary refill. ABSENT: pallor GI/Abdominal exam: PRESENT: normal bowel sounds, soft Rectal exam: PRESENT: deferred Extremities exam: ABSENT: joint swelling, pedal edema Musculoskeletal exam: ABSENT: deformity, dislocation Neurological exam: PRESENT: altered - Confused when aroused, other - Lethargic Psychiatric exam: PRESENT: other - Unable to assess due to sedation Skin exam: PRESENT: dry, intact, warm. ABSENT: jaundice, rash, urticaria Results Laboratory Results: 05/28/20 22:09 05/28/20 22:09 05/28/20 05/28/20 22:09 22:09 WBC 10.2 RBC 4.48 Hgb 15.0 Hct 43.1 MCV 96 MCH 33.3 MCHC 34.7 RDW 13.9 Plt Count 125 L Seg Neutrophils % 76.4 Sodium 134.6 L Potassium 4.0 Chloride 98 Carbon Dioxide 28 Anion Gap 9 BUN 16 Creatinine 1.12 Est GFR ( Amer) > 60 Glucose 122 H Calcium 9.2 Magnesium 1.9 Total Bilirubin 0.8 AST 88 H Alkaline Phosphatase 56 Total Protein 7.5 Albumin 4.3 Assessment and Plan - Diagnosis (1) Acute hyperactive alcohol withdrawal delirium Is this a current diagnosis for this admission?: Yes (2) Visual hallucinations Is this a current diagnosis for this admission?: Yes (3) Alcoholism Is this a current diagnosis for this admission?: Yes (4) Elevated liver enzymes Is this a current diagnosis for this admission?: Yes - Plan Summary Summary: Patient will be admitted to the [facility] where he will receive routine supportive and symptomatic cares. Patient will be monitored on a CIWA scale and will be tr eated with Valium 10 mg p.o. every 6 hours as well as Valium 10 mg IV every hour as needed severe withdrawal symptoms and Thorazine 25 mg IV every 8 hours as needed for hallucinations or extreme agitation. He will receive IV fluids with D5 LR at 167 mL/h initially. He will receive atenolol 50 mg p.o. daily. He will be placed on a regular diet. CBCs, metabolic profiles and additional radiographic and/or laboratory evaluations will be obtained as needed. - Time Time Spent with patient: Less than 15 minutes Medications reviewed and adjusted accordingly: No - No medication Anticipated Discharge Disposition: [facility] Anticipated Discharge Timeframe: within 72 hours - Inpatient Certification Based on my medical assessment, after consideration of the patient's comorbidities, presenting symptoms, or acuity I expect that the services needed warrant INPATIENT care.: Yes I certify that my determination is in accordance with my understanding of Medicare's requirements for reasonable and necessary INPATIENT services [42 CFR 412.3e].: Yes Medical Necessity: Need Close Monitoring Due to Risk of Patient Decompensation, Need For IV Fluids, Need For Continuous Telemetry Monitoring, Need for Neurological Checks, Risk of Complication if Not Cared For in Hospital
--- NOTE | 2020-05-29 06:32 | EKG REPORT ---
SEVERITY:- ABNORMAL ECG - SINUS TACHYCARDIA PROBABLE LEFT ATRIAL ABNORMALITY NONSPECIFIC T ABNORMALITIES, LATERAL LEADS : Confirmed by: Juan Luis Sinclair MD 29-May-2020 06:31:55
[2020-05-29] MEDS: HEPARIN SOD (PORCINE) 5,000 UNIT/ML 1 ML VIAL SUBCUT SCH ×3 (07:16→21:53)
[2020-05-29] MEDS: ATENOLOL 50 MG TABLET PO SCH (10:04)
[2020-05-29] MEDS: FAMOTIDINE 20 MG TABLET PO SCH ×2 (10:04→21:56)
[2020-05-29] MEDS: FOLIC ACID 1 MG TABLET PO SCH (10:05)
[2020-05-29] MEDS: DOCUSATE SODIUM 100 MG CAPSULE PO SCH ×2 (10:05→18:24)
[2020-05-29] MEDS: THIAMINE HCL 100 MG TABLET PO SCH (10:05)
[2020-05-29] MEDS: CHLORPROMAZINE HCL INJ 25 MG/1 ML AMPULE IV PRN ×2 (10:05→18:24)
[2020-05-29 10:51] LABS: URINE AMPHETAMINES SCREEN NEGATIVE; URINE BARBITURATES SCREEN NEGATIVE; URINE COCAINE SCREEN NEGATIVE; URINE MARIJUANA (THC) SCREEN NEGATIVE; URINE METHADONE SCREEN NEGATIVE; URINE PHENCYCLIDINE SCREEN NEGATIVE
[2020-05-29 10:53] LABS: APPEARANCE,URINE SLIGHTLY-CLOUDY; BILIRUBIN,URINE NEGATIVE (NEGATIVE); COLOR,URINE YELLOW; GLUCOSE, URINE NEGATIVE (NEGATIVE); KETONES,URINE NEGATIVE (NEGATIVE); LEUKOCYTE ESTERASE,URINE NEGATIVE (NEGATIVE); NITRITE,URINE NEGATIVE (NEGATIVE); PROTEIN,URINE NEGATIVE (NEGATIVE); URINE SPECIFIC GRAVITY 1.012; UROBILINOGEN,URINE NEGATIVE mg/dL (<2.0)
[2020-05-29 10:57] LABS: URINE BENZODIAZEPINES SCREEN UNCONFIRMED POSITIVE
--- NOTE | 2020-05-29 13:54 | Progress Note ---
Provider Note Provider Note: Patient admitted overnight. He was seen and evaluated this morning. He is lethargic but easily arousable. No specific concerns from the nursing staff. We will continue to monitor.
[2020-05-29] MEDS: ERYTHROMYCIN 0.5% OPH OINTMENT 3.5 GM TUBE OD SCH (19:00)
[2020-05-29] MEDS: MELATONIN 5 MG TABLET PO PRN (21:57)
[2020-05-30] MEDS: HEPARIN SOD (PORCINE) 5,000 UNIT/ML 1 ML VIAL SUBCUT SCH ×3 (05:19→23:16)
[2020-05-30] MEDS: DEXTROSE 5%-LACTATED RINGERS 1,000 ML IV PRN ×3 (05:20→18:14)
[2020-05-30] MEDS: ERYTHROMYCIN 0.5% OPH OINTMENT 3.5 GM TUBE OD SCH ×4 (05:21→18:08)
[2020-05-30 05:28] LABS: HEMATOCRIT 42.4 % (37.9-51.0); HEMOGLOBIN 14.7 g/dL (13.5-17.0); MEAN CORPUSCULAR HEMOGLOBIN 33.9 pg (27.0-33.4); MEAN CORPUSCULAR HGB CONC 34.6 g/dL (32.0-36.0); MEAN CORPUSCULAR VOLUME 98 fl (80-97); PLATELET COUNT 119 10^3/uL (150-450); RED BLOOD COUNT 4.34 10^6/uL (4.35-5.55); RED CELL DISTRIBUTION WIDTH 13.8 % (11.5-14.0); WHITE BLOOD COUNT 7.3 10^3/uL (4.0-10.5)
[2020-05-30 05:51] LABS: ALBUMIN 3.1 g/dL (3.5-5.0); ALKALINE PHOSPHATASE 40 U/L (38-126); ANION GAP 6 (5-19); ASPARTATE AMINO TRANSFERASE 44 U/L (17-59); BILIRUBIN,DIRECT 0.2 mg/dL (0.0-0.4); BLOOD UREA NITROGEN 14 mg/dL (7-20); CALCIUM 8.8 mg/dL (8.4-10.2); CARBON DIOXIDE 28 mmol/L (22-30); CHLORIDE 102 mmol/L (98-107); GLUCOSE 99 mg/dL (75-110); POTASSIUM 4.1 mmol/L (3.6-5.0); TOTAL PROTEIN 5.8 g/dL (6.3-8.2)
[2020-05-30] MEDS: FOLIC ACID 1 MG TABLET PO SCH (12:19)
[2020-05-30] MEDS: ATENOLOL 50 MG TABLET PO SCH (12:19)
[2020-05-30] MEDS: THIAMINE HCL 100 MG TABLET PO SCH (12:20)
[2020-05-30] MEDS: FAMOTIDINE 20 MG TABLET PO SCH ×2 (12:20→21:46)
[2020-05-30] MEDS: DOCUSATE SODIUM 100 MG CAPSULE PO SCH ×2 (12:20→18:09)
[2020-05-30] MEDS: CHLORPROMAZINE HCL INJ 25 MG/1 ML AMPULE IV PRN ×2 (12:20→21:50)
--- NOTE | 2020-05-30 13:50 | PDOC PROGRESS REPORT ---
Subjective Progress Note for:: 05/30/20 Subjective:: Patient is awake and alert and much better today. Still feels a little jittery. He said his last drink was about 4 days ago. Patient apparently drinks about 2 to 3 pints of hard liquor daily Reason For Visit: ACUTE HYPERACTIVE ALCOHOL WITHDRAWL DELIRIUM, Physical Exam Vital Signs: Temp Pulse Resp BP Pulse Ox 97.7 F 75 16 126/76 H 98 05/30/20 10:00 05/30/20 07:21 05/30/20 07:21 05/30/20 07:21 05/30/20 07:21 Intake & Output 05/29/20 05/30/20 05/31/20 06:59 06:59 06:59 Intake Total 251.2 3666 1000 Output Total 1400 Balance 251.2 2266 1000 Weight 84.2 kg 86.5 kg General appearance: PRESENT: no acute distress, well-nourished Head exam: PRESENT: atraumatic Eye exam: PRESENT: conjunctiva pink, EOMI, PERRLA. ABSENT: scleral icterus Ear exam: PRESENT: normal external ear exam Mouth exam: PRESENT: moist, tongue midline Neck exam: ABSENT: carotid bruit, JVD, lymphadenopathy, thyromegaly Respiratory exam: PRESENT: clear to auscultation angeline. ABSENT: rales, rhonchi, wheezes Cardiovascular exam: PRESENT: RRR. ABSENT: diastolic murmur, rubs, systolic murmur Pulses: PRESENT: normal dorsalis pedis pul Vascular exam: PRESENT: normal capillary refill GI/Abdominal exam: PRESENT: normal bowel sounds, soft. ABSENT: distended, guarding, mass, organolmegaly, rebound, tenderness Rectal exam: PRESENT: deferred Extremities exam: PRESENT: full ROM. ABSENT: calf tenderness, clubbing, pedal edema Neurological exam: PRESENT: alert, awake, oriented to person, oriented to place, oriented to time, oriented to situation, CN II-XII grossly intact, other - Minimal tremors. ABSENT: motor sensory deficit Psychiatric exam: PRESENT: appropriate affect, normal mood. ABSENT: homicidal ideation, suicidal ideation Skin exam: PRESENT: dry, intact, warm. ABSENT: cyanosis, rash Results Laboratory Results: 05/30/20 04:27 05/30/20 04:27 05/30/20 05/30/20 04:27 04:27 WBC 7.3 RBC 4.34 L Hgb 14.7 Hct 42.4 MCV 98 H MCH 33.9 H MCHC 34.6 RDW 13.8 Plt Count 119 L Sodium 135.6 L Potassium 4.1 Chloride 102 Carbon Dioxide 28 Anion Gap 6 BUN 14 Creatinine 1.09 Est GFR ( Amer) > 60 Glucose 99 Calcium 8.8 Magnesium 1.9 Total Bilirubin 1.0 AST 44 Alkaline Phosphatase 40 Total Protein 5.8 L Albumin 3.1 L Assessment and Plan - Diagnosis (1) Alcohol withdrawal delirium Is this a current diagnosis for this admission?: Yes Plan: Patient was actually at the [facility] from where he was referred to the hospital. He said his last drink was about 96 hours ago. His delirium is re solving and patient is much better today. He is still requiring Thorazine as well as benzodiazepines as needed (2) Alcoholism Is this a current diagnosis for this admission?: Yes Plan: Patient will need to go back to the [facility] so he can continue his treatment (3) Elevated liver enzymes Is this a current diagnosis for this admission?: Yes Plan: This is improving - Plan Summary Summary: Patient still having clinical evidence of alcohol withdrawal symptoms. He will be monitored and if he continues to improve he probably can be discharged back in a day or 2 - Time Time Spent with patient: 15-24 minutes Medications reviewed and adjusted accordingly: Yes Anticipated Discharge Disposition: [place] Anticipated Discharge Timeframe: within 48 hours
[2020-05-30] MEDS ORDERED: PROMETHAZINE HCL INJ 25 MG/1 ML VIAL IV PRN (15:30)
[2020-05-30] MEDS: MELATONIN 5 MG TABLET PO PRN (21:46)
[2020-05-31] MEDS: ERYTHROMYCIN 0.5% OPH OINTMENT 3.5 GM TUBE OD SCH ×5 (04:35→23:29)
[2020-05-31] MEDS: HEPARIN SOD (PORCINE) 5,000 UNIT/ML 1 ML VIAL SUBCUT SCH ×3 (06:27→22:11)
[2020-05-31] MEDS: DEXTROSE 5%-LACTATED RINGERS 1,000 ML IV PRN ×2 (06:28→13:12)
[2020-05-31] MEDS: DOCUSATE SODIUM 100 MG CAPSULE PO SCH ×2 (11:23→18:10)
[2020-05-31] MEDS: FOLIC ACID 1 MG TABLET PO SCH (11:23)
[2020-05-31] MEDS: ATENOLOL 50 MG TABLET PO SCH (11:24)
[2020-05-31] MEDS: THIAMINE HCL 100 MG TABLET PO SCH (11:24)
[2020-05-31] MEDS: FAMOTIDINE 20 MG TABLET PO SCH ×2 (11:24→22:06)
[2020-05-31] MEDS: DIAZEPAM INJ 10 MG/2 ML DISP.SYRIN IV PRN ×3 (13:12→23:33)
--- NOTE | 2020-05-31 15:32 | PDOC PROGRESS REPORT ---
Subjective Progress Note for:: 05/31/20 Subjective:: Patient feels much better today still little bit jittery but he feels that is getting over the withdrawal. He tells me that he probably will be going to a 30day inpatient stay for alcohol withdrawal on discharge Reason For Visit: ACUTE HYPERACTIVE ALCOHOL WITHDRAWL DELIRIUM, Physical Exam Vital Signs: Temp Pulse Resp BP Pulse Ox 98.0 F 92 16 131/79 H 99 05/31/20 07:32 05/31/20 07:32 05/31/20 07:32 05/31/20 07:32 05/31/20 07:32 Intake & Output 05/30/20 05/31/20 06/01/20 06:59 06:59 06:59 Intake Total 3666 4021 1000 Output Total 1400 3175 Balance 2266 846 1000 Weight 86.5 kg 87 kg General appearance: PRESENT: no acute distress, well-developed, well-nourished Head exam: PRESENT: atraumatic, normocephalic Eye exam: PRESENT: EOMI, PERRLA. ABSENT: scleral icterus Ear exam: PRESENT: normal external ear exam Mouth exam: PRESENT: moist, tongue midline Neck exam: ABSENT: carotid bruit, JVD, lymphadenopathy, thyromegaly Respiratory exam: PRESENT: clear to auscultation angeline, unlabored. ABSENT: rales, rhonchi, wheezes Cardiovascular exam: PRESENT: RRR, +S1, +S2. ABSENT: diastolic murmur, rubs, systolic murmur Pulses: PRESENT: normal dorsalis pedis pul Vascular exam: PRESENT: normal capillary refill GI/Abdominal exam: PRESENT: normal bowel sounds, soft. ABSENT: distended, guarding, mass, organolmegaly, rebound, tenderness Rectal exam: PRESENT: deferred Extremities exam: PRESENT: full ROM. ABSENT: calf tenderness, clubbing, pedal edema Neurological exam: PRESENT: alert, awake, oriented to person, oriented to place, oriented to time, oriented to situation, CN II-XII grossly intact, other - mild asterexis. ABSENT: motor sensory deficit Psychiatric exam: PRESENT: appropriate affect, normal mood. ABSENT: homicidal ideation, suicidal ideation Skin exam: PRESENT: dry, intact, warm. ABSENT: cyanosis, rash Results Laboratory Results: 05/30/20 04:27 05/30/20 04:27 Assessment and Plan - Diagnosis (1) Alcohol withdrawal delirium Is this a current diagnosis for this admission?: Yes Plan: Patient was actually at the [facility] from where he was referred to the hospital. He said his last drink was about 96 hours ago. His delirium is resolving and patient is much better today. He is still requiring Thorazine as well as benzodiazepines as needed as appropriate 05/31 much improved Will taper meds as appropriate (2) Alcoholism Is this a current diagnosis for this admission?: Yes Plan: Plan for inpatient rehab on discharge (3) Elevated liver enzymes Is this a current diagnosis for this admission?: Yes Plan: Mild transaminitis secondary to alcohol use this is improving - Time Time Spent with patient: 15-24 minutes Medications reviewed and adjusted accordingly: Yes Anticipated Discharge Disposition: Alcohol rehab Anticipated Discharge Timeframe: within 24 hours
[2020-05-31] MEDS: CHLORPROMAZINE HCL 25 MG TABLET PO SCH (22:06)
[2020-05-31] MEDS: MELATONIN 5 MG TABLET PO PRN (23:29)
[2020-06-01] MEDS: HEPARIN SOD (PORCINE) 5,000 UNIT/ML 1 ML VIAL SUBCUT SCH (05:42)
--- NOTE | 2020-06-01 10:21 | PDOC DISCHARGE SUMMARY ---
Impression - Admit/DC Date/PCP Admission Date/Primary Care Provider: 05/29/20 01:12 Discharge Date: 06/01/20 - Discharge Diagnosis (1) Alcohol withdrawal delirium Is this a current diagnosis for this admission?: Yes (2) Alcoholism Is this a current diagnosis for this admission?: Yes (3) Elevated liver enzymes Is this a current diagnosis for this admission?: Yes (4) Tachycardia Is this a current diagnosis for this admission?: Yes - Additional Information Resuscitation Status: Full Code Discharge Diet: Regular Discharge Activity: Activity As Tolerated Prescriptions: Erythromycin Base [E-Mycin 0.5% Oph Ointment 3.5 gm] 1 applic OD Q6 #1 tube Atenolol [Tenormin 50 mg Tablet] 50 mg PO DAILY #30 tablet Home Medications: Trazodone HCl [Desyrel 50 mg Tablet] 150 mg PO QHS 02/08/20 Atenolol [Tenormin 50 mg Tablet] 50 mg PO DAILY #30 tablet 06/01/20 Erythromycin Base [E-Mycin 0.5% Oph Ointment 3.5 gm] 1 applic OD Q6 #1 tube 06/01/20 Folic Acid [Folvite 1 mg Tablet] 1 mg PO DAILY tablet 06/01/20 Thiamine HCl [Thiamine 100 mg Tablet] 100 mg PO DAILY tablet 06/01/20 History of Present Illiness History of Present Illness: PARUL ROBISON is a 45 year old male Who was admitted from the [facility] with agitation and confusion. He was thought to have alcohol withdrawal syndrome and she was admitted for further management Hospital Course Hospital Course: Needed for alcohol withdrawal syndrome. Was found to be tachycardic and was agitated. His symptoms actually improved over the next day or 2 and is been requiring minimal benzodiazepines. He was found to be tachycardic likely secondary to his alcohol withdrawal. He was started on a beta-emilia and he is continued on these however I will suggest that this needs to be evaluated as outpatient and that discontinued if needed. He has been calm and cooperative over the last 24 hours and he appears to be over his acute withdrawal syndrome so he is being discharged home. Patient realizes that he needs to follow-up with his alcohol rehabilitation treatment and management and he realizes the need to abstain from further alcohol Physical Exam Vital Signs: Temp Pulse Resp BP Pulse Ox 98.3 F 76 17 132/89 H 99 06/01/20 10:00 05/31/20 23:22 05/31/20 23:22 05/31/20 23:22 05/31/20 23:22 Intake & Output 05/31/20 06/01/20 06/02/20 06:59 06:59 06:59 Intake Total 4021 1480 Output Total 3175 300 Balance 846 1180 Weight 87 kg 87 kg General appearance: PRESENT: no acute distress, well-developed, well-nourished Head exam: PRESENT: atraumatic, normocephalic Eye exam: PRESENT: conjunctiva pink, EOMI, PERRLA. ABSENT: scleral icterus Ear exam: PRESENT: normal external ear exam Mouth exam: PRESENT: moist, tongue midline Neck exam: ABSENT: carotid bruit, JVD, lymphadenopathy, thyromegaly Respiratory exam: PRESENT: clear to auscultation angeline. ABSENT: rales, rhonchi, wheezes Cardiovascular exam: PRESENT: RRR, +S1, +S2. ABSENT: diastolic murmur, rubs, systolic murmur Pulses: PRESENT: normal dorsalis pedis pul Vascular exam: PRESENT: normal capillary refill GI/Abdominal exam: PRESENT: normal bowel sounds, soft. ABSENT: distended, guarding, mass, organolmegaly, rebound, tenderness Rectal exam: PRESENT: deferred Extremities exam: PRESENT: full ROM. ABSENT: calf tenderness, clubbing, pedal edema Neurological exam: PRESENT: alert, awake, oriented to person, oriented to place, oriented to time, oriented to situation, CN II-XII grossly intact. ABSENT: motor sensory deficit Psychiatric exam: PRESENT: appropriate affect, normal mood. ABSENT: homicidal ideation, suicidal ideation Skin exam: PRESENT: dry, intact, warm. ABSENT: cyanosis, rash Results Laboratory Results: WBC 7.3 10^3/uL (4.0-10.5) 05/30/20 04:27 RBC 4.34 10^6/uL (4.35-5.55) L 05/30/20 04:27 Hgb 14.7 g/dL (13.5-17.0) 05/30/20 04:27 Hct 42.4 % (37.9-51.0) 05/30/20 04:27 MCV 98 fl (80-97) H 05/30/20 04:27 MCH 33.9 pg (27.0-33.4) H 05/30/20 04:27 MCHC 34.6 g/dL (32.0-36.0) 05/30/20 04:27 RDW 13.8 % (11.5-14.0) 05/30/20 04:27 Plt Count 119 10^3/uL (150-450) L 05/30/20 04:27 Lymph % (Auto) 13.3 % (13-45) 05/28/20 22:09 [place] % (Auto) 9.2 % (3-13) 05/28/20 22:09 Eos % (Auto) 0.9 % (0-6) 05/28/20 22:09 Baso % (Auto) 0.2 % (0-2) 05/28/20 22:09 Absolute Neuts (auto) 7.8 10^3/uL (1.7-8.2) 05/28/20 22:09 Absolute Lymphs (auto) 1.4 10^3/uL (0.5-4.7) 05/28/20 22:09 Absolute Monos (auto) 0.9 10^3/uL (0.1-1.4) 05/28/20 22:09 Absolute Eos (auto) 0.1 10^3/uL (0.0-0.6) 05/28/20 22:09 Absolute Basos (auto) 0.0 10^3/uL (0.0-0.2) 05/28/20 22:09 Seg Neutrophils % 76.4 % (42-78) 05/28/20 22:09 Sodium 135.6 mmol/L (137-145) L 05/30/20 04:27 Potassium 4.1 mmol/L (3.6-5.0) 05/30/20 04:27 Chloride 102 mmol/L (98-107) 05/30/20 04:27 Carbon Dioxide 28 mmol/L (22-30) 05/30/20 04:27 Anion Gap 6 (5-19) 05/30/20 04:27 BUN 14 mg/dL (7-20) 05/30/20 04:27 Creatinine 1.09 mg/dL (0.52-1.25) 05/30/20 04:27 Est GFR ( Amer) > 60 (>60) 05/30/20 04:27 Est GFR (MDRD) Non-Af > 60 (>60) 05/30/20 04:27 Glucose 99 mg/dL (75-110) 05/30/20 04:27 Calcium 8.8 mg/dL (8.4-10.2) 05/30/20 04:27 Magnesium 1.9 mg/dL (1.6-2.3) 05/30/20 04:27 Total Bilirubin 1.0 mg/dL (0.2-1.3) 05/30/20 04:27 Direct Bilirubin 0.2 mg/dL (0.0-0.4) 05/30/20 04:27 Neonat Total Bilirubin Not Reportable 05/30/20 04:27 Neonat Direct Bilirubin Not Reportable 05/30/20 04:27 Neonat Indirect Bili Not Reportable 05/30/20 04:27 AST 44 U/L (17-59) 05/30/20 04:27 ALT 53 U/L (<50) H 05/30/20 04:27 Alkaline Phosphatase 40 U/L (38-126) 05/30/20 04:27 Total Protein 5.8 g/dL (6.3-8.2) L 05/30/20 04:27 Albumin 3.1 g/dL (3.5-5.0) L 05/30/20 04:27 Urine Color YELLOW 05/29/20 10:20 Urine Appearance SLIGHTLY-CLOUDY 05/29/20 10:20 Urine pH 7.0 (5.0-9.0) 05/29/20 10:20 Ur Specific [place] 1.012 05/29/20 10:20 Urine Protein NEGATIVE mg/dL (NEGATIVE) 05/29/20 10:20 Urine Glucose (UA) NEGATIVE mg/dL (NEGATIVE) 05/29/20 10:20 Urine Ketones NEGATIVE mg/dL (NEGATIVE) 05/29/20 10:20 Urine Blood NEGATIVE (NEGATIVE) 05/29/20 10:20 Urine Nitrite NEGATIVE (NEGATIVE) 05/29/20 10:20 Urine Bilirubin NEGATIVE (NEGATIVE) 05/29/20 10:20 Urine Urobilinogen NEGATIVE mg/dL (<2.0) 05/29/20 10:20 Ur Leukocyte Esterase NEGATIVE (NEGATIVE) 05/29/20 10:20 Urine WBC (Auto) 1 /HPF 05/29/20 10:20 Urine RBC (Auto) 1 /HPF 05/29/20 10:20 Urine Bacteria (Auto) TRACE /HPF 05/29/20 10:20 Urine Ascorbic Acid NEGATIVE (NEGATIVE) 05/29/20 10:20 Urine Opiates Screen NEGATIVE 05/29/20 10:20 Urine Methadone Screen NEGATIVE 05/29/20 10:20 Ur Barbiturates Screen NEGATIVE 05/29/20 10:20 Ur Phencyclidine Scrn NEGATIVE 05/29/20 10:20 Ur Amphetamines Screen NEGATIVE 05/29/20 10:20 U Benzodiazepines Scrn UNCONFIRMED POSITIVE 05/29/20 10:20 Urine Cocaine Screen NEGATIVE 05/29/20 10:20 U Marijuana (THC) Screen NEGATIVE 05/29/20 10:20 Serum Alcohol < 10 mg/dL (NONE DETECTED) 05/28/20 22:09 Plan Health Concerns: Medication management and reevaluation is strongly suggested Time Spent: Less than 30 Minutes Stroke Is this a Stroke Patient?: No Acute Heart Failure Is this a Heart Failure Patient?: No
[2020-06-01] MEDS: DOCUSATE SODIUM 100 MG CAPSULE PO SCH (11:01)
[2020-06-01] MEDS: FAMOTIDINE 20 MG TABLET PO SCH (11:01)
[2020-06-01] MEDS: ATENOLOL 50 MG TABLET PO SCH (11:01)
[2020-06-01] MEDS: FOLIC ACID 1 MG TABLET PO SCH (11:01)
[2020-06-01] MEDS: ERYTHROMYCIN 0.5% OPH OINTMENT 3.5 GM TUBE OD SCH ×2 (11:05→12:36)
[2020-06-01] MEDS: CHLORPROMAZINE HCL 25 MG TABLET PO SCH (11:05)
[2020-06-01 11:08] VITALS: BP 129/69
[2020-06-01] MEDS: THIAMINE HCL 100 MG TABLET PO SCH (11:10)
== END 2020-06-01 12:36 | disposition home or self-care (01) | DRG 897 ==
LOC: ER 21:56 → EH 05-29 01:12 → 5 05-29 02:39
PROVIDERS: ADMIT Emergency Medicine; ATTEND Internal Medicine
DX: F10.231 Alcohol dependence with withdrawal delirium (principal); R74.8 Abnormal levels of other serum enzymes; R00.0 Tachycardia, unspecified; F32.9 Major depressive disorder, single episode, unspecified; Z79.899 Other long term (current) drug therapy; Z88.8 Allergy status to other drugs, medicaments and biological substances
CPT/HCPCS: 36415; 80048; 80053; 80076; 80307; 81001; 83735; 85025; 85027; 93005; 93010; 96365; 96375; 99285; J1644; J3230; J3360; J3411; J3490; J7050; J7121